=== PATIENT | female | born 1965 | race Caucasian/White ===

== ENCOUNTER → 2016-11-30 | Outpatient (CLI) | payer BC, OTHER ==
--- NOTE | 2016-12-03 18:13 | SLEEPHOME ---
DATE OF PROCEDURE: 11/30/2016 REFERRING PHYSICIAN: Dr. Cullen INTERPRETATION: Diagnostic home sleep testing was performed due to concern for the obstructive sleep apnea syndrome in this patient with obesity. For testing, a NOX-T3 respiratory monitoring device was used. Continuous record was made of pulse, oxygen saturation, airflow, chest and abdominal strain, and body position. 9 hours and 59 minutes of data were reviewed. There were 8 hours and 17 minutes marked as time in bed. During the interval marked time in bed, there were only 20 respiratory events identified of 10 seconds in duration or greater. The events were more frequent in the right sided and supine postures. Respiratory event index is 2.4. The patient's baseline pulse rate was 67. Pulse rate ranged 54 to 105. Baseline saturation 92%. Lowest oxygen saturation 88%. Testing was performed in both the supine and nonsupine positions. IMPRESSION: Equivocal home sleep testing with some respiratory events and minimal oxygen desaturations. RECOMMENDATION: The patterning identified is suggestive of the possibility of obstructive sleep apnea syndrome, however, the frequency of events identified is not supportive. If symptom complex suggests, formal in laboratory sleep testing is more sensitive to identify mild obstructive sleep apnea disease.
== END ==
LOC: M SLEEP HO 14:56
PROVIDERS: ATTEND Internal Medicine Pulmonary Disease
DX: G47.30 Sleep apnea, unspecified (principal)

== ENCOUNTER 2019-03-16 12:17 | Emergency (ER) | payer BC ==
[~2019-03-16] VITALS: Ht 170.2 cm; Wt 104.2 kg
--- NOTE | 2019-03-16 13:16 | ECGEPIP ---
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
[2019-03-16 14:08] LABS: BASO # 0.1 10^3/uL (0.0-0.2); BASO % 0.6 % (0.0-1.0); EOS # 0.1 10^3/uL (0.0-0.5); EOS % 0.6 % (0.0-3.0); HEMATOCRIT 40.9 % (36.0-47.0); LYMPH % 21.2 % (24.0-44.0); MEAN CORPUSCULAR HEMOGLOBIN 29.5 pg (27.0-33.0); MEAN CORPUSCULAR HGB CONC 31.8 g/dl (32.0-36.5); MONO # 0.4 10^3/uL (0.0-0.8); MONO % 4.7 % (0.0-5.0); NEUTROPHILS # 6.8 10^3/uL (1.5-8.5); NEUTROPHILS % 72.4 % (36.0-66.0); PLATELET COUNT, AUTOMATED 326 10^3/uL (150-450); WHITE BLOOD COUNT 9.4 10^3/uL (4.0-10.0)
[2019-03-16] MEDS ORDERED: VITA100T59 PO (14:32)
[2019-03-16] MEDS ORDERED: RA M500C PO (14:32)
[2019-03-16] MEDS ORDERED: META1TAB22 PO (14:32)
[2019-03-16] MEDS ORDERED: HYDR-3713 PO (14:32)
[2019-03-16] MEDS ORDERED: BUPR300T34 PO (14:32)
[2019-03-16] MEDS ORDERED: DULO1CAP5 PO (14:32)
[2019-03-16] MEDS ORDERED: LEVO112T2 PO (14:32)
[2019-03-16] MEDS ORDERED: MULTCAP PO (14:32)
[2019-03-16] MEDS ORDERED: LINZ290C PO (14:32)
[2019-03-16] MEDS ORDERED: DULO1CAP6 PO (14:32)
[2019-03-16] MEDS ORDERED: NORE1TAB12 PO (14:32)
[2019-03-16] MEDS ORDERED: PANT40TA3 PO (14:32)
[2019-03-16] MEDS ORDERED: PRED10TA2 PO (14:32)
[2019-03-16] MEDS ORDERED: CYCL10TA PO (14:32)
[2019-03-16] MEDS ORDERED: OLME1TAB11 PO (14:32)
[2019-03-16] MEDS ORDERED: LORA1TAB12 PO (14:32)
[2019-03-16] MEDS ORDERED: HYDR50TA70 PO (14:32)
[2019-03-16] MEDS ORDERED: B-12100T2 PO (14:32)
[2019-03-16] MEDS ORDERED: VITA-157 PO (14:32)
[2019-03-16] MEDS ORDERED: IRON27TA2 PO (14:32)
[2019-03-16 14:35] LABS: BLOOD UREA NITROGEN 20 MG/DL (7-18); CALCIUM LEVEL 8.6 MG/DL (8.5-10.1); CARBON DIOXIDE LEVEL 27 MEQ/L (21-32); CHLORIDE LEVEL 107 MEQ/L (98-107); CK-MB VALUE MASS < 1.0 NG/ML (<3.6); CPK CREATINE PHOSPHOKINASE 88 U/L (26-192); CREATININE FOR GFR 0.91 MG/DL (0.55-1.30); GLOMERULAR FILTRATION RATE > 60.0 (>51); GLUCOSE, FASTING 90 MG/DL (70-100); MB/CK RELATIVE INDEX 1.14 (< OR =4); SODIUM LEVEL 140 MEQ/L (136-145); TROPONIN I < 0.02 NG/ML (< 0.10)
[2019-03-16] MEDS ORDERED: VENTAER INH (14:35)
[2019-03-16] MEDS ORDERED: ADVA230A INH (14:35)
[2019-03-16] MEDS ORDERED: ACETAMINOPHEN 325 MG TAB PO ONE (15:30)
[2019-03-16 15:53] LABS: CK-MB VALUE MASS 1.1 NG/ML (<3.6); CPK CREATINE PHOSPHOKINASE 97 U/L (26-192); MB/CK RELATIVE INDEX 1.13 (< OR =4); TROPONIN I < 0.02 NG/ML (< 0.10)
[2019-03-16 17:31] VITALS: BP 116/67
--- NOTE | 2019-03-17 06:39 | ECGEPIP ---
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
== END 2019-03-16 17:58 | disposition home or self-care (01) ==
LOC: M ED 12:17
DX: R07.89 Other chest pain (principal); J44.9 Chronic obstructive pulmonary disease, unspecified; F17.200 Nicotine dependence, unspecified, uncomplicated; Z88.0 Allergy status to penicillin; Z88.2 Allergy status to sulfonamides; Z88.1 Allergy status to other antibiotic agents; Z88.8 Allergy status to other drugs, medicaments and biological substances; Z79.899 Other long term (current) drug therapy; Z79.51 Long term (current) use of inhaled steroids

== ENCOUNTER → 2019-03-16 | Outpatient (REF) | payer BC ==
[~2019-03-16] MED LIST: ADVA230A INH; B-12100T2 PO; BUPR300T34 PO; CYCL10TA PO; DULO1CAP5 PO; DULO1CAP6 PO; HYDR-3713 PO; HYDR50TA70 PO; IRON27TA2 PO; LEVO112T2 PO; LINZ290C PO; LORA1TAB12 PO; META1TAB22 PO; MULTCAP PO; NORE1TAB12 PO; OLME1TAB11 PO; PANT40TA3 PO; PRED10TA2 PO; RA M500C PO; VENTAER INH; VITA-157 PO; VITA100T59 PO
== END ==
LOC: M LAB REF 13:05
PROVIDERS: ATTEND Internal Medicine Pulmonary Disease
DX: J45.40 Moderate persistent asthma, uncomplicated (principal)

== ENCOUNTER → 2024-08-06 | Outpatient (CLI) | payer BC ==
[~2024-08-06] MED LIST changes: +BUPR-597 PO; -BUPR300T34 PO; +CYCL-707 PO; -CYCL10TA PO; -LORA1TAB12 PO; +LORA1TAB23 PO; +META-10 PO; -META1TAB22 PO; -OLME1TAB11 PO; +OLME1TAB91 PO; +PANT40TA29 PO; -PANT40TA3 PO; -VITA-157 PO; +VITAE40CA PO
== END ==
LOC: M WUC 12:19
PROVIDERS: ATTEND Student in an Organized Health Care Education/Training Program
DX: M19.012 Primary osteoarthritis, left shoulder (principal)

== ENCOUNTER → 2025-02-14 | Outpatient (REF) | payer BC ==
[~2025-02-14] MED LIST changes: -BUPR-597 PO; +BUPR-766 PO
== END ==
LOC: M LAB REF 17:02
PROVIDERS: ATTEND Internal Medicine Pulmonary Disease
DX: J45.50 Severe persistent asthma, uncomplicated (principal)